=== PATIENT | female | born 1960 | race Caucasian/White ===

== ENCOUNTER 2024-07-30 12:46 | Emergency (ER) | payer OTHER ==
[~2024-07-30] VITALS: Ht 177.8 cm; Wt 127.9 kg
[2024-07-30 13:34] VITALS: BP 150/117; PULSE 92; RESP 20; TEMP 97.8; O2SAT 96
[2024-07-30] MEDS ORDERED: BOOSTRIX IM ONE (15:09)
[2024-07-30] MEDS: BOOSTRIX IM ONE (15:20)
[2024-07-30] MEDS ORDERED: AMOX1TAB12 PO (16:42)
[2024-07-30 16:49] VITALS: BP 155/100; PULSE 98; RESP 20; TEMP 97.8; O2SAT 96
== END 2024-07-30 16:55 | disposition home or self-care (01) ==
LOC: ER 12:46
DX: S61.412A Laceration without foreign body of left hand, initial encounter (principal); W54.0XXA Bitten by dog, initial encounter; Y93.9 Activity, unspecified; Y92.89 Other specified places as the place of occurrence of the external cause; Y99.8 Other external cause status
CPT/HCPCS: 12002; 90471; 90715; 99283; 73130-LT